=== PATIENT | female | born 1990 | race African-American/Black ===

== ENCOUNTER 2018-11-15 16:44 | Emergency (ER) | payer BC ==
[~2018-11-15] VITALS: Ht 162.6 cm; Wt 54.5 kg
[2018-11-15 16:45] VITALS: BP 128/88
== END 2018-11-15 17:46 | disposition home or self-care (01) ==
LOC: ED 17:40
DX: J02.8 Acute pharyngitis due to other specified organisms (principal); J45.909 Unspecified asthma, uncomplicated
CPT/HCPCS: 99283

== ENCOUNTER 2019-03-14 18:05 | Emergency (ER) | payer BC ==
[~2019-03-14] VITALS: Ht 154.9 cm; Wt 55.5 kg
[2019-03-14 18:09] VITALS: BP 120/82
--- NOTE | 2019-03-14 18:16 | NUR ---
PATIENT BROUGHT BACK FROM TRIAGE WITH CHIEF COMPLAINT OF DOG BITE TO LEFT LEG TWO WEEKS
--- NOTE | 2019-03-14 18:43 | NUR ---
BACITRACIN APPLIED, PT REFUSED BANDAID.
--- NOTE | 2019-03-14 18:52 | NUR ---
DISCHARGE INSTRUCTIONS REVIEWED.
== END 2019-03-14 18:57 | disposition home or self-care (01) ==
LOC: ED 18:50
DX: S91.051A Open bite, right ankle, initial encounter (principal); J45.909 Unspecified asthma, uncomplicated; W54.0XXA Bitten by dog, initial encounter; Y93.89 Activity, other specified; Y92.009 Unspecified place in unspecified non-institutional (private) residence as the place of occurrence of the external cause; Y99.8 Other external cause status
CPT/HCPCS: 99283